=== PATIENT | female | born 1990 | race African-American/Black ===

== ENCOUNTER 2021-01-14 05:43 | Inpatient (IN) | payer BC ==
[2021-01-14] MEDS ORDERED: hydrALAZINE 20 MG/ML VIAL SLOW IVP PRN ×2 (06:15→11:05)
[2021-01-14] MEDS ORDERED: Famotidine/PF 20 mg/2ml Vial SLOW IVP PRN (06:15)
[2021-01-14] MEDS ORDERED: Promethazine HCl 25 MG/ML VIAL IM PRN ×3 (06:15→12:51)
[2021-01-14] MEDS ORDERED: Bicitra 30 ML UDCUP PO PRN (06:15)
[2021-01-14] MEDS ORDERED: Ondansetron PF 4 MG/2 ML Vial IVP PRN ×3 (06:15→12:51)
[2021-01-14] MEDS ORDERED: CEFAZOLIN 2 GM in Premix Bag 1 BAG IVPB SCH (06:15)
[2021-01-14] MEDS ORDERED: Lactated Ringer's 1,000 ML IV SCH (06:15)
[2021-01-14 06:17] VITALS: BMI 38.8
[2021-01-14 07:21] LABS: Hemoglobin 10.9 g/dL (12.0-15.5); Mean Corpuscular Hemoglobin 27.8 pg (27.0-33.0); Mean Corpuscular Volume 84.2 fl (81.6-98.3); Mean Platelet Volume 11.3 fl (7.4-10.4); Platelet Count 172 10x3/uL (150-450); RBC Distribution Width 13.4 % (11.5-14.5); Red Blood Cell (RBC) Count 3.92 10x6/uL (3.90-5.03); White Blood Cell (WBC) Count 7.9 10x3/uL (3.5-10.5)
[2021-01-14] MEDS ORDERED: Dexamethasone 4 mg/ml Vial ONE (07:21)
[2021-01-14] MEDS ORDERED: Ondansetron PF 4 MG/2 ML Vial ONE (07:21)
[2021-01-14] MEDS ORDERED: Oxytocin 10 UNITS/ML VIAL ONE (07:21)
[2021-01-14] MEDS ORDERED: Morphine PF 10 MG/10 ML VIAL ONE (07:21)
[2021-01-14] MEDS ORDERED: ePHEDrine Sulfate 50 MG/10 ML VIAL ONE (07:21)
[2021-01-14] MEDS ORDERED: PHENYLEPHRINE-NS 100 MCG/ML 10 ML SYRINGE ONE (07:21)
[2021-01-14 08:06] LABS: Hep B Surf Ag Non-Reactive S/CO (NonReactive); Syphilis Antibody Nonreactive (Nonreactive); Syphilis Antibody Index 0.03 S/CO (<1.00 Non-Reactive)
[2021-01-14 08:34] LABS: HBSAg Index 0.16 S/CO (0-0.99)
[2021-01-14] MEDS ORDERED: NS w/ Oxytocin 30 units 500 ML IVPB SCH (10:30)
[2021-01-14] MEDS ORDERED: NS w/ Oxytocin 30 units 500 ML ONE (10:42)
[2021-01-14] MEDS ORDERED: HYDROcodone/Acetaminophen 5/325 mg Tablet PO PRN ×2 (11:05)
[2021-01-14] MEDS ORDERED: Acetaminophen 325 MG TAB PO PRN (11:05)
[2021-01-14] MEDS ORDERED: Adacel (T-DAP) 0.5 ML SYRINGE IM ONE (11:05)
[2021-01-14] MEDS ORDERED: diphenhydrAMINE 25 MG CAP PO PRN (11:05)
[2021-01-14] MEDS ORDERED: Simethicone Chewable 80 MG TAB PO PRN (11:05)
[2021-01-14] MEDS ORDERED: Lanolin Ointment 7 GM TUBE TOP PRN (11:05)
[2021-01-14] MEDS ORDERED: Prenatal Vitamin 1 TAB PO SCH (12:00)
[2021-01-14] MEDS ORDERED: Docusate Calcium (SURFAK) 240 MG CAP PO SCH (12:00)
[2021-01-14] MEDS: Ibuprofen 800 MG TAB PO SCH (12:30)
[2021-01-14] MEDS ORDERED: diphenhydrAMINE 50 MG/ML VIAL IVP PRN (12:51)
[2021-01-14] MEDS ORDERED: Ondansetron HCl/PF 4 MG/2 ML Vial IVP PRN (12:51)
[2021-01-14] MEDS ORDERED: Naloxone HCl 0.4 mg/ml Vial IV PRN (12:51)
[2021-01-14] MEDS ORDERED: Meperidine HCl/PF 25 MG/ML VIAL SLOW IVP PRN (12:51)
[2021-01-14] MEDS ORDERED: HYDROmorphone 2 MG/ML VIAL SLOW IVP PRN (12:51)
[2021-01-14] MEDS ORDERED: L&D-Morphine 4 MG/ML VIAL SLOW IVP PRN (12:51)
[2021-01-14] MEDS ORDERED: Naloxone HCl 0.4 mg/ml Vial IVP PRN ×2 (12:51)
[2021-01-14] MEDS ORDERED: Communication Order-Pharmacy FS SCH (13:00)
[2021-01-14] MEDS ORDERED: Ketorolac Tromethamine 30 MG/ML VIAL IVP SCH (13:00)
[2021-01-14] MEDS ORDERED: Ketorolac Tromethamine 30 MG/ML VIAL ONE (13:18)
[2021-01-14] MEDS ORDERED: Ketorolac Tromethamine 30 MG/ML VIAL IVP PRN (22:16)
[2021-01-15] MEDS: Docusate Calcium (SURFAK) 240 MG CAP PO SCH ×3 (05:05→20:32)
[2021-01-15] MEDS: Ibuprofen 800 MG TAB PO SCH ×3 (05:06→20:32)
[2021-01-15 07:13] LABS: Hemoglobin 9.9 g/dL (12.0-15.5); Mean Corpuscular HGB CONC 33.3 g/dL (32.0-36.0); Mean Corpuscular Hemoglobin 27.8 pg (27.0-33.0); Mean Corpuscular Volume 83.4 fl (81.6-98.3); Mean Platelet Volume 11.6 fl (7.4-10.4); Platelet Count 142 10x3/uL (150-450); RBC Distribution Width 13.4 % (11.5-14.5); Red Blood Cell (RBC) Count 3.56 10x6/uL (3.90-5.03); White Blood Cell (WBC) Count 9.5 10x3/uL (3.5-10.5)
[2021-01-15] MEDS: Prenatal Vitamin 1 TAB PO SCH (07:58)
[2021-01-15] MEDS: Ferrous Sulfate 325 MG TAB PO SCH (10:37)
[2021-01-15] MEDS: HYDROcodone/Acetaminophen 5/325 mg Tablet PO PRN ×2 (10:38→18:30)
[2021-01-16] MEDS: HYDROcodone/Acetaminophen 5/325 mg Tablet PO PRN ×2 (01:24→08:31)
[2021-01-16] MEDS: Ibuprofen 800 MG TAB PO SCH ×2 (04:58→12:39)
[2021-01-16] MEDS: Prenatal Vitamin 1 TAB PO SCH (08:30)
[2021-01-16] MEDS: Docusate Calcium (SURFAK) 240 MG CAP PO SCH (08:30)
[2021-01-16] MEDS: Ferrous Sulfate 325 MG TAB PO SCH (08:30)
[2021-01-16 10:05] VITALS: BP 103/57; TEMP 98.7
== END 2021-01-16 14:25 | disposition home or self-care (01) | DRG 786 ==
LOC: CSHLD 05:43 → CSHANTE 13:00
PROVIDERS: ADMIT Obstetrics & Gynecology; ATTEND Obstetrics & Gynecology
PROC: 10D00Z1 Extraction of Products of Conception, Low, Open Approach (ICD-10-PCS; principal; 2021-01-14)
DX: O98.52 Other viral diseases complicating childbirth (principal); U07.1 COVID-19; D62 Acute posthemorrhagic anemia; Z3A.39 39 weeks gestation of pregnancy; Z37.0 Single live birth; O34.211 Maternal care for low transverse scar from previous cesarean delivery; O99.824 Streptococcus B carrier state complicating childbirth; O34.13 Maternal care for benign tumor of corpus uteri, third trimester; D25.9 Leiomyoma of uterus, unspecified; O99.02 Anemia complicating childbirth; N85.8 Other specified noninflammatory disorders of uterus; D64.89 Other specified anemias; D25.2 Subserosal leiomyoma of uterus
CPT/HCPCS: 36415; 36416; 51702; 85027; 85461; 86780; 86850; 86870; 86900; 86901; 87340; 90384; 96372; J0690; J1100; J1200; J1885; J2270; J2405; J2590